=== PATIENT | female | born 1980 | race Two or more races ===

== ENCOUNTER → 2018-08-26 | Emergency (ER) | payer OTHER ==
[~2018-08-26] VITALS: Ht 170.2 cm; Wt 70.3 kg
[~2018-08-26] MED LIST: OBSTETRIX DHA1 EACH
== END | disposition home or self-care (01) ==
LOC: ER 18:29
DX: O20.0 Threatened abortion (principal)

== ENCOUNTER 2018-09-10 08:22 | Outpatient (CLI) | payer OTHER | END 2018-09-10 12:51 | disposition home or self-care (01) | LOC: LAB 08:22 | DX: Z34.80 Encounter for supervision of other normal pregnancy, unspecified trimester (principal) ==

== ENCOUNTER 2018-10-28 10:46 | Outpatient (CLI) | payer OTHER | END 2018-10-28 11:29 | disposition home or self-care (01) | LOC: LAB 10:46 | DX: Z34.80 Encounter for supervision of other normal pregnancy, unspecified trimester (principal) ==

== ENCOUNTER 2018-10-30 07:44 | Outpatient (CLI) | payer OTHER | END 2018-10-30 09:07 | disposition home or self-care (01) | LOC: LAB 07:44 | DX: Z34.80 Encounter for supervision of other normal pregnancy, unspecified trimester (principal) ==